=== PATIENT | male | born 1965 | race Caucasian/White ===

== ENCOUNTER 2016-09-24 12:34 | Emergency (ER) | payer BC ==
[~2016-09-24] VITALS: Ht 160 cm; Wt 55.5 kg
[~2016-09-24 12:34] MED LIST: ASPIRIN 32325 MG/TAB PO; B COMPLEX & B121 TAB PO; FISH OIL 1000MG1 CAP PO; LIPITOR 80MG80 MG PO; MULTI VITAMINS1 TAB PO; NICODERM C14 MG/PATC TD; PLAVIX 75MG TAB75 MG PO; RANEXA 500MG T500 MG PO
[2016-09-24 12:37] VITALS: TEMP 97.3
[2016-09-24 14:15] LABS: BASO # 0.1 (0.0-0.2); BASO % 0.6 % (0.0-2.0); EOS # 0.2 (0.0-0.7); EOS % 2.2 % (0-4.0); GRAN # 5.1 (1.4-6.5); GRAN % 53.6 % (42.2-75.2); HEMATOCRIT 43.4 % (42.0-52.0); HEMOGLOBIN 14.8 g/dl (13.5-18.0); LYMPH # 3.5 (1.2-3.4); LYMPH % 36.5 % (20.0-51.0); MEAN CELL VOLUME 100 fl (80.0-100.0); MEAN CORPUSCULAR HEMOGLOBIN 34 pg (27.0-31.0); MEAN CORPUSCULAR HGB CONC 34 g/dl (33.0-37.0); MEAN PLATELET VOLUME 9.5 fl (7.4-10.4); MONO # 0.7 (0.1-0.6); MONO % 6.9 % (1.7-9.3); PLATELET COUNT 304 K/mm3 (130-400); RED BLOOD COUNT 4.33 M/mm3 (4.20-5.60); REDCELL DISTRIBUTION WIDTH-CV 13.8 % (11.5-14.5); WHITE BLOOD COUNT 9.5 K/mm3 (4.8-10.8)
[2016-09-24 14:33] LABS: ADJUSTED CALCIUM 9.1 mg/dL (8.4-10.2); ALANINE AMINOTRANSFERASE 37 U/L (21-72); ALBUMIN 4.1 gm/dL (3.5-5.0); ALKALINE PHOSPHATASE 141 U/L (50-136); ANION GAP 11 mmol/L (7-16); BILIRUBIN,TOTAL 0.6 mg/dL (0.0-1.0); BLOOD UREA NITROGEN 9 mg/dL (9-20); CALCIUM 9.2 mg/dL (8.4-10.2); CARBON DIOXIDE 24 mmol/L (22-30); CHLORIDE 105 mmol/L (98-107); CREATININE, serum 0.88 mg/dL (0.66-1.25); GLUCOSE 81 mg/dL (74-106); LIPASE 61 U/L (23-300); POTASSIUM 4.2 mmol/L (3.4-5.0); SODIUM 140 mmol/L (137-145); TOTAL PROTEIN 7.1 gm/dL (6.4-8.2)
[2016-09-24 14:45] LABS: TROPONIN-I < 0.012 ng/mL (0.000-0.034)
[2016-09-24] MEDS ORDERED: NORCO 325 MG-51 TAB PO (16:17)
[2016-09-24 16:50] VITALS: BP 124/88; PULSE 73
== END 2016-09-24 16:42 | disposition home or self-care (01) ==
LOC: COL.ER 12:34
PROVIDERS: Physician Assistant
DX: R07.89 Other chest pain (principal); I25.2 Old myocardial infarction; Z79.02 Long term (current) use of antithrombotics/antiplatelets; Z79.82 Long term (current) use of aspirin; F17.210 Nicotine dependence, cigarettes, uncomplicated; Z95.810 Presence of automatic (implantable) cardiac defibrillator

== ENCOUNTER 2016-10-22 07:17 | Day surgery (SDC) | payer BC ==
[~2016-10-22] VITALS: Ht 160 cm; Wt 51.9 kg
[~2016-10-22 07:17] MED LIST changes: +NORCO 325 MG-51 TAB PO
[2016-10-22 08:14] VITALS: BP 118/80; PULSE 81; TEMP 98.3
[2016-10-22 10:38] VITALS: BP 112/96; PULSE 86; TEMP 98.4
[2016-10-22 10:55] VITALS: BP 109/91; PULSE 94
[2016-10-22 11:10] VITALS: BP 114/84; PULSE 75
[2016-10-22 11:37] VITALS: BP 98/73; PULSE 82
== END 2016-10-22 11:11 | disposition home or self-care (01) ==
LOC: SDCO 07:17
DX: Z12.11 Encounter for screening for malignant neoplasm of colon (principal); D12.3 Benign neoplasm of transverse colon; K57.30 Diverticulosis of large intestine without perforation or abscess without bleeding; I50.9 Heart failure, unspecified
CPT/HCPCS: J2250; J3010; J7030

== ENCOUNTER 2018-08-22 12:55 | Day surgery (SDC) | payer BC ==
[2018-08-22] VITALS (9 sets, daily range): BP systolic 120–134; BP diastolic 70–84; PULSE 62–70; TEMP 97.5–97.8
[~2018-08-22] VITALS: Ht 160 cm; Wt 55.5 kg
[~2018-08-22 12:55] MED LIST changes: -ASPIRIN 32325 MG/TAB PO; +ASPIRIN 81M81 MG/TA2 PO; +B-12 500 MCG PO; -MULTI VITAMINS1 TAB PO
[2018-08-22] MEDS ORDERED: PROTONIX 40MG T40 MG PO (13:25)
[2018-08-22] MEDS ORDERED: NITROSTAT0.4 MG/TAB SL (13:26)
== END 2018-08-22 22:20 | disposition home or self-care (01) ==
LOC: SDCO 12:55 → SURG 18:30 → SDCO 22:20
DX: K40.20 Bilateral inguinal hernia, without obstruction or gangrene, not specified as recurrent (principal); I25.10 Atherosclerotic heart disease of native coronary artery without angina pectoris; I25.2 Old myocardial infarction; F17.210 Nicotine dependence, cigarettes, uncomplicated; K21.9 Gastro-esophageal reflux disease without esophagitis; I25.5 Ischemic cardiomyopathy; Z95.810 Presence of automatic (implantable) cardiac defibrillator; E78.00 Pure hypercholesterolemia, unspecified; Z83.3 Family history of diabetes mellitus; Z80.7 Family history of other malignant neoplasms of lymphoid, hematopoietic and related tissues
CPT/HCPCS: OP; A4314; C1781; J1100; J1885; J2250; J2370; J2405; J2704; J2710; J3010; J7120

== ENCOUNTER 2021-07-16 14:56 | Inpatient (IN) | payer BC ==
[~2021-07-16] VITALS: Ht 160 cm; Wt 55.2 kg
[2021-07-16] VITALS (206 sets, daily range): BP systolic 120; BP diastolic 78; PULSE 68; TEMP 97.1; O2SAT 82–99
[~2021-07-16 14:56] MED LIST changes: +NITROSTAT0.4 MG/TAB SL; +PROTONIX 40MG T40 MG PO
[2021-07-16 15:58] LABS: BASO # 0.1 K/mm3 (0.0-0.2); BASO % 0.6 % (0.0-2.0); EOS # 0.1 K/mm3 (0.0-0.7); GRAN # 6.7 K/mm3 (1.4-6.5); GRAN % 62.4 % (42.2-75.2); HEMATOCRIT 48.7 % (42.0-52.0); HEMOGLOBIN 16.9 g/dl (13.5-18.0); LYMPH % 28.2 % (20.0-51.0); MEAN CELL VOLUME 99 fl (80.0-100.0); MEAN CORPUSCULAR HEMOGLOBIN 34 pg (27.0-31.0); MEAN CORPUSCULAR HGB CONC 35 g/dl (33.0-37.0); MONO # 0.8 K/mm3 (0.1-0.6); MONO % 7.5 % (1.7-9.3); PLATELET COUNT 349 K/mm3 (130-400); RED BLOOD COUNT 4.94 M/mm3 (4.20-5.60); REDCELL DISTRIBUTION WIDTH-CV 14.5 % (11.5-14.5)
[2021-07-16 16:04] LABS: INR 1.1 (0.8-3.0); PROTHROMBIN TIME 11.9 SECONDS (9.7-12.8)
[2021-07-16 16:27] LABS: ALANINE AMINOTRANSFERASE 19 U/L (0-55); ALBUMIN 4.2 gm/dL (3.5-5.0); ALKALINE PHOSPHATASE 150 U/L (40-150); ANION GAP 12 mmol/L (7-16); AST,SGOT 20 U/L (5-34); BILIRUBIN,TOTAL 0.4 mg/dL (0.2-1.2); BLOOD UREA NITROGEN 6 mg/dL (8-26); CALCIUM 9.8 mg/dL (8.4-10.2); CARBON DIOXIDE 24 mmol/L (22-29); CHLORIDE 104 mmol/L (98-107); CREATINE KINASE 134 U/L (30-200); GLUCOSE 95 mg/dL (70-99); POTASSIUM 4.4 mmol/L (3.5-4.5); SODIUM 140 mmol/L (136-145); TOTAL PROTEIN 7.6 gm/dL (6.2-8.1)
[2021-07-16 16:34] LABS: TROPONIN-I < 0.010 ng/mL (0.00-0.033)
--- NOTE | 2021-07-16 17:30 | NUR ---
PT ADMITTED FROM ED WITH DIZZINESS AND BIGEMENY PVC'S. PT ON A AMIO DRIP. PT IS [id number]. PT'S VSS. PT ORIENTED TO ROOM AND FLOOR. PT INSTRUCTED ON NPO AT MIDNIGHT FOR STRESS TEST. WILL CONTINUE TO MONITOR.
[2021-07-17] VITALS (317 sets, daily range): BP systolic 107–128; BP diastolic 64–85; PULSE 60–75; TEMP 97.1–98; O2SAT 38–99
[2021-07-17 05:17] LABS: BASO # 0.1 K/mm3 (0.0-0.2); BASO % 0.4 % (0.0-2.0); EOS # 0.4 K/mm3 (0.0-0.7); EOS % 3.1 % (0-4.0); GRAN # 8.5 K/mm3 (1.4-6.5); GRAN % 68.6 % (42.2-75.2); HEMOGLOBIN 15.7 g/dl (13.5-18.0); LYMPH # 2.6 K/mm3 (1.2-3.4); LYMPH % 20.6 % (20.0-51.0); MEAN CELL VOLUME 101 fl (80.0-100.0); MEAN CORPUSCULAR HEMOGLOBIN 35 pg (27.0-31.0); MEAN CORPUSCULAR HGB CONC 34 g/dl (33.0-37.0); MEAN PLATELET VOLUME 9.4 fl (7.4-10.4); MONO # 0.9 K/mm3 (0.1-0.6); MONO % 7.1 % (1.7-9.3); PLATELET COUNT 306 K/mm3 (130-400); RED BLOOD COUNT 4.55 M/mm3 (4.20-5.60); REDCELL DISTRIBUTION WIDTH-CV 14.6 % (11.5-14.5)
[2021-07-17 05:29] LABS: INR 1.2 (0.8-3.0)
[2021-07-17 05:41] LABS: ANION GAP 10 mmol/L (7-16); BLOOD UREA NITROGEN 7 mg/dL (8-26); CALCIUM 9.1 mg/dL (8.4-10.2); CARBON DIOXIDE 21 mmol/L (22-29); CHLORIDE 108 mmol/L (98-107); CHOLESTEROL 89 mg/dL (0-199); CREATININE, serum 0.89 mg/dL (0.72-1.25); GLUCOSE 101 mg/dL (70-99); HDL CHOLESTEROL 29 mg/dL (40-60); LDL CHOLESTEROL 40 mg/dL; MAGNESIUM 1.7 mg/dL (1.6-2.6); POTASSIUM 3.9 mmol/L (3.5-4.5); SODIUM 139 mmol/L (136-145); TRIGLYCERIDE 101 mg/dL (0-149)
[2021-07-17 06:01] LABS: TSH w REFLEX 2.127 uIU/mL (0.350-4.940)
[2021-07-17 06:02] LABS: TROPONIN-I < 0.010 ng/mL (0.00-0.033)
--- NOTE | 2021-07-17 07:00 | NUR ---
Patient resting in bed with eyes closed. Has rested well through the night, no CP, no dizziness. NPO since midnight. Has denied needs
--- NOTE | 2021-07-17 09:17 | NUR ---
Left unit for destiney-scan. Alert and oriented and in no disress upon transfer.
--- NOTE | 2021-07-17 11:30 | NUR ---
Returned to unit from destiney-scan.
[2021-07-17] MEDS ORDERED: CORDARONE200 MG/TAB PO (11:58)
--- NOTE | 2021-07-17 13:50 | NUR ---
Discharge packet and education provided to patient. Discharged from unit with family present. Alert and oriented and in no distress upon discharge.
--- NOTE | 2021-07-17 14:39 | NUR ---
NOTIFIED DR. CORRALES OF ABNORMAL STRESS TEST AND PATIENT IN DISTRESS. DOCTOR CAME DOWN AND EVALUATED PATIENT.
--- NOTE | 2021-07-17 15:55 | NUR ---
day worker met with patient at bedside. Patient states that he lives at home with his life partner Gayle ([phone]). 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 Patient reports that he does not utilize any DME to assist with mobility but does have access to a cane from a fall a few years back. No O2 needs. PCP is Dr. Carlson and he utilizes [facility] for a pharmacy. Patient reports that he does not have a DPOA-HC established. He and Gayle are not legally and he reports to having no children. He states that his father Gordon Barrientos ([phone]) is his living NOK. Educated the patient that if he would like Gayle included then he would need to complete a DPOA-HC form. Patient verbalized his understanding of this and verbalized that he would like to complete form. Form provided to the patient. Patient verbalized that he cannot see to fill the form out. Gave this social work supervisor permission to fill form out for him.This SW and CM Nicole Walker witnessed patient sign form. Copy made for patient's chart. Original and additional copies made and given to the patient.
== END 2021-07-17 13:50 | disposition home or self-care (01) | DRG 316 ==
LOC: COL.ER 14:56 → ICU 16:48
PROVIDERS: Emergency Medicine; Physician Assistant; ADMIT Internal Medicine
DX: R00.8 Other abnormalities of heart beat (principal); R00.2 Palpitations; I49.3 Ventricular premature depolarization; I25.5 Ischemic cardiomyopathy; F17.210 Nicotine dependence, cigarettes, uncomplicated; I25.10 Atherosclerotic heart disease of native coronary artery without angina pectoris; E78.5 Hyperlipidemia, unspecified; I25.2 Old myocardial infarction; Z95.810 Presence of automatic (implantable) cardiac defibrillator; Z95.5 Presence of coronary angioplasty implant and graft; Z79.82 Long term (current) use of aspirin
CPT/HCPCS: OP; 99222-AI; 99239; A9500; J0282; J2785; J7060